=== PATIENT | female | born 1995 | race Caucasian/White ===

== ENCOUNTER → 2024-01-20 06:20 | Day surgery (SDC) | payer BC, SELFPAY | LOC: GI 06:20 | PROVIDERS: ATTENDING PHYSICIAN Surgery | DX: Z12.11 Encounter for screening for malignant neoplasm of colon (principal); K62.5 Hemorrhage of anus and rectum; K64.9 Unspecified hemorrhoids; Z86.010 Personal history of colon polyps; Z80.0 Family history of malignant neoplasm of digestive organs | CPT/HCPCS: G0105 ==